=== PATIENT | female | born 1945 | race American Indian/Alaskan Native ===

== ENCOUNTER 2020-10-06 18:16 | Emergency (ER) | payer MEDICARE ==
[2020-10-06 19:00] LABS: Bacteria,Urine 1+ /HPF (Negative); Bilirubin,Urine NEG (Negative); Blood,Urine NEG (Negative); Color,Urine Amber (Yellow); Protein,Urine <15 mg/dL mg/dL (Negative)
[2020-10-06 20:26] LABS: Basophils % (Auto) 0.8 % (0.0-1.8); Eosinophils # (Auto) 0.2 K/mm3 (0.0-0.4); Eosinophils % (Auto) 2.9 % (0.0-4.3); Hematocrit 36.9 % (30.3-42.9); Hemoglobin 12.8 gm/dl (10.1-14.3); Lymphocytes # (Auto) 1.8 K/mm3 (1.2-5.4); Lymphocytes % (Auto) 33.7 % (13.4-35.0); Mean Corpuscular HGB Conc 35 % (30-34); Mean Corpuscular Volume 87 fl (79-97); Monocytes # (Auto) 0.7 K/mm3 (0.0-0.8); Monocytes % (Auto) 12.5 % (0.0-7.3); Platelet Count 314 K/mm3 (140-440); Red Blood Count 4.24 M/mm3 (3.65-5.03); Red Cell Distribution Width 13.5 % (13.2-15.2)
[2020-10-06 20:50] LABS: Calcium 9.2 mg/dL (8.4-10.2)
--- NOTE | 2020-10-06 21:21 | Emergency Department Report ---
ED Female HPI - General Chief complaint: Urogenital-Female Stated complaint: BLOOD IN URINE Time Seen by Provider: 10/06/20 20:52 Source: patient Mode of arrival: Ambulatory Limitations: No Limitations - History of Present Illness Initial comments: 75-year-old female presents to ED with complaint of possible UTI. Patient states over the last 2 weeks she has been having symptoms consisting of suprapubic pain, urinary frequency, dysuria. Patient denies any nausea, vomiting, or back pain. Patient states today she took some Azo. Afterwards she noticed that her urine was a reddish-orange color so she decided to come to the ED. Patient unsure if it was from the medication or if she had blood in her urine. MD Complaint: other -: week(s) (2) Location: suprapubic Radiation: non-radiating Severity: mild Quality: sharp Consistency: intermittent Improves with: none Worsens with: urination Associated Symptoms: fever/chills, hematuria. denies: nausea/vomiting - Related Data Home Medications Medication Instructions Recorded Confirmed Last Taken Pravastatin [Pravachol] 40 mg PO QHS 11/28/12 11/28/12 11/30/12 amLODIPine [Norvasc] 5 mg PO DAILY 11/28/12 11/28/12 12/01/12 05:00 Previous Rx's Medication Instructions Recorded Last Taken Type Nitrofurantoin [place]/M-Cryst 100 mg PO Q12HR #14 capsule 10/06/20 Unknown Rx [Macrobid CAP] Allergies Allergy/AdvReac Type Severity Reaction Status Date / Time naproxen Allergy Hives Verified 11/28/12 09:09 pecan Allergy Unknown Swelling Uncoded 11/29/12 14:04 ED Review of Systems ROS: Stated complaint: BLOOD IN URINE Other details as noted in HPI Comment: All other systems reviewed and negative Constitutional: fever Gastrointestinal: abdominal pain. denies: nausea, vomiting Genitourinary: dysuria, frequency, hematuria ED Past Medical Hx - Past Medical History Previous Medical History?: Yes Hx Hypertension: Yes Hx GERD: Yes - Surgical History Additional Surgical History: hysterectomy. back surgery. knee surgery. c- section - Social History Smoking Status: Never Smoker Substance Use Type: None - Medications Home Medications: Home Medications Medication Instructions Recorded Confirmed Last Taken Type Pravastatin [Pravachol] 40 mg PO QHS 09/12/0211/28/12 11/30/12 History amLODIPine [Norvasc] 5 mg PO DAILY 11/28/12 11/28/12 12/01/12 05:00 History Nitrofurantoin [place]/M-Cryst 100 mg PO Q12HR #14 capsule 10/06/20 Unknown Rx [Macrobid CAP] ED Physical Exam - General Limitations: No Limitations General appearance: alert, in no apparent distress - Head Head exam: Present: atraumatic, normocephalic - Eye Eye exam: Present: normal appearance, EOMI - ENT ENT exam: Present: mucous membranes moist - Neck Neck exam: Present: normal inspection - Respiratory Respiratory exam: Present: normal lung sounds bilaterally. Absent: respiratory distress - Cardiovascular Cardiovascular Exam: Present: regular rate, normal rhythm - GI/Abdominal GI/Abdominal exam: Present: soft. Absent: distended, tenderness - Extremities Exam Extremities exam: Present: normal inspection - Back Exam Back exam: Absent: CVA tenderness (R), CVA tenderness (L) - Neurological Exam Neurological exam: Present: alert, oriented X3 - Psychiatric Psychiatric exam: Present: normal affect, normal mood - Skin Skin exam: Present: warm, dry, intact, normal color ED Course Vital Signs 10/06/20 10/06/20 10/06/20 18:27 21:22 21:30 Temperature 99.7 F H Pulse Rate 89 67 66 Respiratory 22 14 16 Rate Blood Pressure 205/84 140/62 Blood Pressure [Right] O2 Sat by Pulse 96 98 97 Oximetry 10/06/20 21:45 Temperature 98.6 F Pulse Rate 66 Respiratory 16 Rate Blood Pressure Blood Pressure 140/62 [Right] O2 Sat by Pulse 97 Oximetry ED Medical Decision Making - Lab Data Result diagrams: 10/06/20 19:58 10/06/20 19:58 - Medical Decision Making 75-year-old female presents to ED with UTI symptoms x2 weeks. Patient reports urinary frequency, dysuria, and some suprapubic discomfort. Abdomen is benign on exam. No CVA tenderness present. Patient initially hypertensive, however BP improved during stay without intervention. Serum labs are normal. UA shows evidence of infection with positive nitrite, 1+ bacteria, 7 WBCs. Will discharge at this time with prescription for antibiotics. Outpatient follow-up advised, return precautions given. - Differential Diagnosis UTI Critical care attestation.: If time is entered above; I have spent that time in minutes in the direct care of this critically ill patient, excluding procedure time. ED Disposition Clinical Impression: UTI (urinary tract infection) Disposition: TO HOME OR SELFCARE Is pt being admited?: No Condition: Stable Instructions: Urinary Tract Infection, Adult, [id number] Prescriptions: Nitrofurantoin [place]/M-Cryst [Macrobid CAP] 100 mg PO Q12HR #14 capsule Referrals: PRIMARY CARE, [Primary Care Provider] - 3-5 Days Time of Disposition: 21:22
[2020-10-06 21:44] VITALS: BP 140/62
== END 2020-10-06 22:18 | disposition home or self-care (01) ==
LOC: ED 18:16
DX: N39.0 Urinary tract infection, site not specified (principal); I10 Essential (primary) hypertension; K21.9 Gastro-esophageal reflux disease without esophagitis; Z79.899 Other long term (current) drug therapy; Z90.710 Acquired absence of both cervix and uterus; Z98.890 Other specified postprocedural states; Z88.8 Allergy status to other drugs, medicaments and biological substances
CPT/HCPCS: 36415; 80053; 81001; 85025